=== PATIENT | female | born 1960 | race Hispanic/Latino ===

== ENCOUNTER 2018-08-18 18:28 | Emergency (ER) | payer SELFPAY ==
[2018-08-18 19:10] LABS: #Basophils 0.1 thou/uL (0.0-0.2); #Lymphocytes 1.6 thou/uL (1.20-3.40); #Monocytes 0.4 thou/uL (0.11-0.59); #Neutrophils 6.5 thou/uL (1.40-6.50); %Basophils 0.7 % (0.0-1.0); %Eosinophils 0.6 % (0.0-10.0); %Lymphocytes 18.6 % (21.0-51.0); %Monocytes 4.8 % (0.0-10.0); %Neutrophils 75.4 % (42.0-75.0); Hemoglobin 14.1 g/dL (12.0-16.0); Mean Corpuscular HGB CONC 33.6 g/dL (32.0-36.0); Mean Corpuscular Hemoglobin 33.4 pg (27.0-31.0); Mean Corpuscular Volume 99.4 fL (78.0-98.0); Mean Platelet Volume 7.8 fL (7.4-10.4); Platelet Count 217 thou/uL (130-400); RBC Distribution Width 11.6 % (11.5-14.5); Red Blood Cell (RBC) Count 4.22 mill/uL (4.20-5.40); White Blood Cell (WBC) Count 8.7 thou/uL (4.8-10.8)
[2018-08-18 19:21] LABS: Bilirubin Negative (Negative); Blood, Urine Moderate (Negative); Clarity CLEAR (Clear); Glucose, Urine (Dipstick) Negative (Negative); Leukocyte Small (Negative); Nitrite Negative (Negative); Protein, Urine (Dipstick) Negative (Neg-Trace); Specific Gravity, Urine 1.021 (1.002-1.036)
[2018-08-18 19:23] LABS: Bacteria/HPF 1+ HPF (None Seen); Hyaline Casts/LPF 0-3 HYALINE CAST LPF (0-3 Hyaline); Pathc Cast-AUWi Flag 0.87 (0-2.49); RBC/HPF 21-50 HPF (0-3)
[2018-08-18 19:32] LABS: ALT (SGPT) 27 U/L (8-55); AST (SGOT) 35 U/L (5-34); Albumin 4.2 g/dL (3.5-5.0); Alkaline Phosphatase 87 U/L (40-150); Anion Gap 13 mmol/L (10-20); BUN (Urea Nitrogen) 12 mg/dL (9.8-20.1); Bilirubin, Total 0.8 mg/dL (0.2-1.2); Calc. Creatinine Clearance 0 mL/min (70-130); Calcium 9.7 mg/dL (7.8-10.44); Carbon Dioxide 25 mmol/L (22-29); Chloride 105 mmol/L (98-107); Estimated GFR-MDRD 68; Globulin 4.3 g/dL (2.4-3.5); Glucose 160 mg/dL (70-105); Lipase 38 U/L (8-78); Protein, Total 8.5 g/dL (6.0-8.3); Sodium 139 mmol/L (136-145)
[2018-08-18] MEDS ORDERED: cefTRIAXone\\ROCEPHIN 1 GM VIAL ONE (20:01)
[2018-08-18] MEDS ORDERED: Sodium Chloride 0.9% 100 ML ONE (20:01)
--- NOTE | 2018-08-18 20:30 | CT ---
CT OF THE ABDOMEN AND PELVIS WITHOUT IV CONTRAST: 08/18/18 INDICATION: Left sided flank pain. FINDINGS: There is very mild left sided hydronephrosis. There is a small 2 mm calculus within posterolateral le ft bladder. There are mild varicosities seen surrounding the spleen. There is nodular contour to the liver suspicious for underlying cirrhosis. The spleen is enlarged measuring 13 cm. The pancreas and adrenal glands appear within normal limits. Unopacified right kidney is unremarkable. There is a normal appendix in the right lower quadrant. The uterus, rectum and perirectal soft tissues are unremarkable. Unopacified large and small bowel are unremarkable appearing. There are scattered degenerative and osteoarthritic change. IMPRESSION: 1. Findings most consistent with a recently passed stone. There is 2 mm of stone within the blad evin. There is mild left hydronephrosis. 2. Findings highly suspicious for cirrhosis with portable hypertension. There is nodular contour to the liver. The spleen is enlarged. There are numerous splenic varicosities. 3. Other chronic findings as above. POS: TAMRA
[2018-08-18] MEDS ORDERED: Ketorolac Tromethamine 30 MG/ML VIAL ONE (21:05)
[2018-08-18] MEDS ORDERED: HYDROcodone/Acetaminophen 10/325 mg Tablet ONE (21:05)
== END 2018-08-18 21:13 | disposition home or self-care (01) ==
LOC: ERS 18:28
DX: N39.0 Urinary tract infection, site not specified (principal); E11.9 Type 2 diabetes mellitus without complications; Z79.84 Long term (current) use of oral hypoglycemic drugs
CPT/HCPCS: 36415; 74176; 80053; 81003; 81015; 83690; 85025; 96365; 96375; J0696; J1885; J7050

== ENCOUNTER 2019-09-13 13:29 | Outpatient (CLI) | payer OTHER ==
--- NOTE | 2019-09-13 14:39 | CT ---
CT OF THE ABDOMEN AND PELVIS WITH IV CONTRAST INDICATION: Concern for possible cirrhosis COMPARISON: Noncontrast CT the abdomen and pelvis dated August 18, 2018 FINDINGS: ABDOMEN: Lung bases: Clear Liver: There is a nodular contour to the liver. No underlying focal hepatic lesion is evident within this phase of enhancement Gallbladder: Normal appearing. Pancreas: Normal. Adrenal glands: Normal. Spleen: The spleen is less prominent now measuring 11.8 cm. There are numerous perisplenic varicositi es are still seen. Kidneys and ureters: Small right renal cyst is seen involving the superior pole right kidney. There a re multiple small peripelvic cysts. No hydronephrosis is demonstrated. Vasculature: Normal. Lymph nodes:No lymphadenopathy. Free fluid in abdomen:No free fluid is evident. PELVIS: Small and large bowel: Normal Appendix:Normal Bladder: Bladder is partially decompressed. Rectal and perirectal soft tissues:Normal. Reproductive structures: Normal. Free fluid in pelvis: No free fluid is evident. Lymphadenopathy pelvis: No lymphadenopathy is evident. Osseous structures: No acute osseous abnormality. No destructive osteolytic or osteoblastic lesion i s identified. There is scattered degenerative and osteoarthritic changes. Soft tissues:Normal. IMPRESSION: 1. Findings remain suspicious for underlying cirrhosis and mild portal hypertension. The degree of sp lenomegaly has slightly improved from the comparison examination now measuring up to 11.8 cm previously measured 13 cm. Splenic varicosities persists. No kelsea ascites is noted. 2. Small right renal cyst and bilateral peripelvic renal cysts.
[2019-09-13] MEDS ORDERED: Iopamidol-370 76% 500 ML 1 ML ONE (15:40)
== END 2019-09-13 13:30 | disposition home or self-care (01) ==
LOC: BICCT 13:29
PROVIDERS: ATTEND Family Medicine
DX: R93.5 Abnormal findings on diagnostic imaging of other abdominal regions, including retroperitoneum (principal); N28.1 Cyst of kidney, acquired; I86.8 Varicose veins of other specified sites; R16.1 Splenomegaly, not elsewhere classified
CPT/HCPCS: 74177; Q9967

== ENCOUNTER 2020-06-30 15:41 | Outpatient (CLI) | payer OTHER ==
--- NOTE | 2020-06-30 16:28 | ULT ---
Bilateral renal ultrasound CLINICAL INDICATION: Renal cyst COMPARISON: CT abdomen and pelvis on 09/13/2019 FINDINGS: Right kidney: Small difficult to image anechoic structure is seen in the superior pole right kidney m easuring 1.8 cm which corresponds to finding seen on CT scan examination and is most compatible with a small cyst. No hydronephrosis or renal calculus is seen.The right kidney measures 11.4 cm x 4. 6 cm. Left kidney: There is no evidence of a renal mass, renal calculus, or hydronephrosis. The left kidney measures 11.2 cm x 5.3 cm. Urinary bladder: Within normal limits for degree of distention. Urinary bladder volume is 109 mL IMPRESSION: 1. No evidence of hydronephrosis. 2. Small superior pole right renal cyst.
== END 2020-06-30 15:42 | disposition home or self-care (01) ==
LOC: BICULT 15:41
PROVIDERS: ATTEND Urology
DX: N28.1 Cyst of kidney, acquired (principal)
CPT/HCPCS: 76770

== ENCOUNTER 2023-10-05 15:52 | Outpatient (CLI) | payer BC | END 2023-10-05 15:53 | disposition home or self-care (01) | LOC: BICMAMMO 15:52 | PROVIDERS: ATTEND Family Medicine | DX: Z12.31 Encounter for screening mammogram for malignant neoplasm of breast (principal) | CPT/HCPCS: 77063; 77067 ==